=== PATIENT | female | born 1965 | race Caucasian/White ===

== ENCOUNTER → 2022-08-13 13:05 | Outpatient (CLI) | payer OTHER, SELFPAY ==
[2022-08-13 15:19] LABS: COVID19 -Nasal RAPID Negative (Negative)
== END ==
PROVIDERS: PCP Registered Nurse; Visit Provider Surgery
DX: Z20.822 Contact with and (suspected) exposure to COVID-19 (principal); Z01.812 Encounter for preprocedural laboratory examination
CPT/HCPCS: 87635; C9803

== ENCOUNTER 2022-08-16 08:53 | Day surgery (SDC) | payer OTHER, SELFPAY ==
--- NOTE | 2022-08-16 | PATH_ITS ---
[facility] Accession Number: [id number] . 01 Material submitted: . PART A: gastrointestinal site - ANTRUM PART B: gastrointestinal site - PROXIMAL STOMACH . 01 Diagnosis: A. Antrum, Biopsy: Gastric mucosa with mild chronic inflammation. No Helicobacter pylori organisms on immunohistochemical evaluation. No intestinal metaplasia, dysplasia, or malignancy. . B. Proximal Stomach, Biopsy: Gastric mucosa with mild chronic inflammation. No Helicobacter pylori organisms on immunohistochemical evaluation. No intestinal metaplasia, dysplasia, or malignancy. MRV 08/19/2022 1407 Local . 01 Electronically signed: . Jyotsna Krause MD, Pathologist NPI- [id number] . 01 Gross description: . A. Received in formalin, labeled with the patient's name and antrum, and consists of a single irregular faith soft tissue fragment measuring 0.3 cm in greatest dimension. Submitted entirely in cassette A1. B. Received in formalin, labeled with the patient's name and proximal stomach, and consists of a single irregular faith soft tissue fragment measuring 0.4cm in greatest dimension. Submitted entirely in cassette B1. ([id number]) /[facility] 08/19/2022 0326 Local . 01 Microscopic: . A. An immunohistochemical stain was performed to evaluate for Helicobacter organisms and is negative. The control stain showed appropriate reactivity. . B. An immunohistochemical stain was performed to evaluate for Helicobacter organisms and is negative. The control stain showed appropriate reactivity. . * This test was developed and its performance characteristics determined by [facility]. It has not been cleared or approved by the [place]. Food and Drug Administration. The FDA has determined that such clearance or approval is not necessary. This test is used for clinical purposes. It should not be regarded as investigational or for research. . 01 Pathologist provided ICD-10: K29.70 . 01 CPT . 960985, 313473, I21527 Specimen Comment: A courtesy copy of this report has been sent to [phone] Performed at: 01 [facility] [address] [place] [address], [place], [place] [id number] MD William Douglas MD Phone: [phone]
[2022-08-16] MEDS: SODIUM CHLORIDE 0.9% 1,000 ML 84 ML IV (09:08)
[2022-08-16 09:24] VITALS: BP 144/89; PULSE 70; RESP 16; TEMP 36.5; O2SAT 97; BMI 33.9
--- NOTE | 2022-08-16 09:49 | PM.HP.1 ---
History of Present Illness History of Present Illness Date Patient Seen: 08/16/22 Time Patient Seen: 09:49 Chief complaint: EGD Narrative: Refractory GERD. I reviewed the note by Dr. Guerrero. No therapy at present. Overall she is improved and believes this may be because of less stress at present. Patient History Family & Social History Social History: household members spouse Tobacco & Substance use: Smoking Status Never smoker alcohol intake current alcohol intake frequency a few times a week Substance Use Type does not use Meds Home Medications and Allergies Home Medications Medication Instructions Recorded Confirmed Type cetirizine 10 mg capsule (Zyrtec) 10 mg PO DAILY PRN Allergy Symptoms 08/16/22 08/16/22 History fluticasone propionate 50 2 spray intranasal DAILY 08/16/22 08/16/22 History mcg/actuation nasal spray,suspension (Aller-Otf) Allergies Allergy/AdvReac Type Severity Reaction Status Date / Time No Known Drug Allergies Allergy Verified 08/16/22 09:12 Review of Systems Review of Systems ROS: Yes All systems reviewed with the patient and are negative except as otherwise documented Exam Vital Signs (past 8 hours): - 08/16/22 09:24 Temperature 97.7 F Pulse Rate 70 Respiratory Rate 16 Blood Pressure 144/89 H Pulse Oximetry 97 Oxygen Delivery Method Room Air Oxygen Delivery Method Room Air Const General: cooperative HENMT Head: normal to inspection Eyes General: appearance normal, both eyes and all related structures Neck Neck: normal visual inspection Chest Chest: normal inspection of the chest Resp Effort & Inspection: normal respiratory effort Cardio Rate: regular rate GI Inspection: normal to inspection Skin General: no rashes or lesions noted Neuro General: patient alert and patient awake Extrem General: normal to inspection and no pedal edema Psych Appearance: grossly normal Assessment & Plan Assessment & Plan narrative: GERD only partially responsive to therapy. Currently she is not on any. EGD is pursued today to evaluate for erosive esophagitis, Noriega's etc.. Time Spent With Patient Critical Care time: I spent a total of [] minutes of critical care time on this patient's care today; this time is exclusive of procedural time.
--- NOTE | 2022-08-16 09:51 | PM.PREOP ---
Pre-operative Note COVID-19 COVID-19 status: Negative Result date/Date tested (Pos, Neg/Pending): 08/13/22 Criteria for continued procedure: Possibility delay results in more complex future surgery or treatment Interval Note History & Physical reviewed/Exam performed by Physician: Yes Changes to H&P: Yes ASA Class (for procedural sedation): II
--- NOTE | 2022-08-16 10:39 | P.OP.EGD_ITS ---
Operative Date/Time/Diagnoses Date of procedure: 08/16/22 Time of procedure: 10:39 Pre-op diagnosis: GERD only partially responsive to therapy. Post-op diagnosis: same Procedure & Clinicians Study performed: EGD with biopsies Same procedure as scheduled: Yes Indications: GERD only partially responsive to therapy. Surgeon: Enrico Melvin Procedure Notes SCOAP/Timeout: Done Procedure in detail: After the risks and benefits were explained, written and verbal informed consent was obtained. The patient was brought into the procedure room and placed into the left lateral decubitus position. Please see nurse glass ribbon machine operator notes for sedation details. The scope was introduced into the mouth through the bite block and advanced under direct visualization to the 2nd portion of the duodenum. The scope was slowly withdrawn carefully examining the mucosa for any defects or lesions. Retroflexed views were accomplished in the stomach. The stomach was decompressed, the scope was then removed from the patient who tolerated the procedure well. Sedation minutes: 11 Complications: none Impression: 1. Duodenum: This was normal from the bulb through to the 2nd portion. 2. Stomach: No gastric outlet obstruction. No ulcers. No mass lesions. There was a mild gastropathy appreciated characterized by streaky erythema in the antrum. Biopsies were acquired for exclusion of H pylori. Retroflexed views of the LES disclosed Crow's erosions and sliding hiatal hernia. A punctate erosion in the proximal stomach was addressed with cold forceps for histopathologic characterization. No other additional significant gastric pathology appreciated. 3. Esophagus: The squamocolumnar junction correlated with the top of the g astric folds. GEJ was at approximately 36 cm from the incisors. No acute erosive changes identified in the distal esophagus. The diaphragmatic pinchcock was at about 40 cm from the incisors. The hiatal hernia contained a paraesophageal component as well. No endoscopic suggestion of Barretts. Endoscopic diagnosis 1. Hiatal hernia with a paraesophageal component. 2. Crow's erosions 3. Mild gastropathy Post-procedure Plan for aftercare: 1. Await histopathology. 2. Continue omeprazole or alternate proton pump inh ibitor for control of any symptoms of reflux. 3. Contingent on overall response to therapy, consider surgical correction of the hiatal hernia. Disposition: PACU
[2022-08-16 10:42] VITALS: BP 108/80; PULSE 73; RESP 19; TEMP 36.3; O2SAT 96
[2022-08-16 10:47] VITALS: BP 100/67; PULSE 70; RESP 22; O2SAT 96
[2022-08-16 10:52] VITALS: BP 109/71; PULSE 79; RESP 17; O2SAT 97
[2022-08-16 10:58] VITALS: BP 115/78; PULSE 67; RESP 15; TEMP 36.4; O2SAT 97
[2022-08-16 11:02] VITALS: BP 112/82; PULSE 63; RESP 17; TEMP 36.7; O2SAT 97
== END 2022-08-16 11:12 | disposition home or self-care (01) ==
PROVIDERS: PCP Registered Nurse; Referring Provider Internal Medicine Gastroenterology; Visit Provider Internal Medicine Gastroenterology
PROC: 0DJ08ZZ Inspection of Upper Intestinal Tract, Via Natural or Artificial Opening Endoscopic (ICD-10-PCS; CPT 43235; principal; 2022-08-16 10:00)
DX: K29.50 Unspecified chronic gastritis without bleeding (principal); K21.9 Gastro-esophageal reflux disease without esophagitis; K22.10 Ulcer of esophagus without bleeding; K44.9 Diaphragmatic hernia without obstruction or gangrene; K31.9 Disease of stomach and duodenum, unspecified
CPT/HCPCS: 43239; J2704

== ENCOUNTER → 2023-11-03 07:30 | Outpatient (CLI) | payer OTHER, SELFPAY ==
--- NOTE | 2023-11-03 07:34 | DI.MRI.S_ITS ---
BREAST MRI OF BOTH BREASTS: 11/03/2023 CLINICAL: Breast Cancer. Comparison is made to exams dated: 10/12/2023 ultrasound biopsy, 10/12/2023 mammogram, 09/21/2023 ultrasound, 09/21/2023 ultrasound, 09/21/2023 mammogram, and 08/31/2023 mammogram - [facility]. Gadolinium contrast calibrated to patient weight was injected. MRI images were obtained. Bilateral background breast enhancement is minimal. INDICATIONS: BREAST CANCER TECHNIQUE: The patient was placed prone in a dedicated breast imaging coil. Precontrast axial STIR and 3D FLASH without fat saturation sequences were obtained. Both before and after bolus injection of contrast, sequential 1-minute axial 3D FLASH with fat saturation sequences for 3 time points, with subtraction images and maximum intensity projections (MIP's) generated. Delayed sagittal FLASH images with fat saturation were also obtained. Computer-aided detection, including computer algorithm analysis of MRI image data for lesion detection and characterization, pharmacokinetic analysis, with further physician review for interpretation, was performed. FINDINGS: Image quality: Excellent. There is minimal background parenchymal enhancement. There are scattered fibroglandular elements in both breasts. Right breast: In the right breast 4 o'clock position anterior depth, there is an irregular homogeneously enhancing mass with irregular margins measuring 1.9 x 1.2 x 1.4 cm (image 49 of series 6 and image 87 of series 17), which corresponds with the known biopsy-proven malignancy. Associated biopsy clip is present. Kinetic curve assessment demonstrates rapid early enhancement and predominantly progressive delayed enhancement. No other mass or suspicious non-mass enhancement is seen within the right breast. No axillary or internal mammary lymphadenopathy. Left breast: There is a circumscribed [id number] nonenhancing cyst in the left breast 12 o'clock position anterior depth measuring up to 5 mm in size, which corresponds with the prior mammogram and ultrasound findings and is considered benign. Few additional tiny benign-appearing cysts are seen in the left breast. No suspicious enhancing mass or abnormal non-mass enhancement is seen in the left breast. No axillary or internal mammary lymphadenopathy. Miscellaneous: Included portions of the anterior chest and upper abdomen demonstrate no significant abnormality. IMPRESSION: KNOWN BIOPSY PROVEN MALIGNANCY 1. Known biopsy-proven malignancy in the right breast measures up to 1.9 cm in maximum dimension, which is larger when compared to the prior ultrasound and may be due to the inclusion of enhancing spiculations. 2. No MR evidence of malignancy in the left breast. Previously seen left-sided findings on diagnostic mammogram and left breast ultrasound demonstrate a benign appearance on MRI. 3. No suspicious axillary or internal mammary lymphadenopathy. BIRADS 6: Known biopsy-proven malignancy. This exam was interpreted at Station ID: [id number]. Electronically Signed By: Shahid mane/dennis:11/03/2023 16:38:09 ACR BI-RADS Category 6: Known biopsy proven malignancy [id number]
== END ==
LOC: MRI 07:33
PROVIDERS: PCP Registered Nurse; Referring Provider Registered Nurse; Visit Provider Registered Nurse
DX: R92.8 Other abnormal and inconclusive findings on diagnostic imaging of breast (principal); C50.311 Malignant neoplasm of lower-inner quadrant of right female breast; N60.02 Solitary cyst of left breast
CPT/HCPCS: 77049; A9579